=== PATIENT | female | born 2000 | race Caucasian/White ===

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

== ENCOUNTER → 2023-05-14 | Outpatient (CLI) | payer BC, OTHER ==
[2023-05-14 13:16] LABS: HEMATOCRIT 37.4 % (36.0-47.0); HEMOGLOBIN 12.3 g/dl (12.0-15.5); MEAN CORPUSCULAR HEMOGLOBIN 28.4 pg (27.0-33.0); MEAN CORPUSCULAR HGB CONC 32.9 g/dl (32.0-36.5); MEAN CORPUSCULAR VOLUME 86.4 fl (80.0-96.0); PLATELET COUNT, AUTOMATED 253 10^3/uL (150-450); RED BLOOD COUNT 4.33 10^6/uL (4.00-5.40); WHITE BLOOD COUNT 9.3 10^3/uL (4.0-10.0)
[2023-05-14 14:26] LABS: HIV 1&2 SCREEN NEGATIVE (NEGATIVE)
[2023-05-14 14:35] LABS: HEPATITIS C VIRUS ABY INDEX 0.08 INDEX (<0.8)
[2023-05-14 14:47] LABS: GC DNA AMPLIFICATION NEGATIVE (NEGATIVE)
== END ==
LOC: M PLALAB 11:24
PROVIDERS: ATTEND Specialist
DX: Z34.81 Encounter for supervision of other normal pregnancy, first trimester (principal)

== ENCOUNTER → 2023-06-04 | Outpatient (CLI) | payer BC, OTHER | LOC: M PLALAB 10:56 | PROVIDERS: ATTEND Specialist | DX: Z34.81 Encounter for supervision of other normal pregnancy, first trimester (principal) ==

== ENCOUNTER → 2023-06-15 | Outpatient (REF) | payer BC, OTHER | LOC: M PLALAB 15:42 | PROVIDERS: ATTEND Obstetrics & Gynecology | DX: R82.90 Unspecified abnormal findings in urine (principal) ==

== ENCOUNTER 2023-07-08 19:31 | Emergency (ER) | payer BC, OTHER ==
[~2023-07-08] VITALS: Ht 175.3 cm; Wt 80.9 kg
[2023-07-08 20:47] LABS: BASO % 0.3 % (0.0-1.0); EOS % 0.1 % (0.0-3.0); HEMATOCRIT 36.2 % (36.0-47.0); HEMOGLOBIN 12.3 g/dl (12.0-15.5); LYMPH # 1.1 10^3/uL (1.5-5.0); LYMPH % 9.7 % (24.0-44.0); MEAN CORPUSCULAR HEMOGLOBIN 29.2 pg (27.0-33.0); MONO # 0.3 10^3/uL (0.0-0.8); MONO % 3.1 % (2.0-8.0); NEUTROPHILS # 9.6 10^3/uL (1.5-8.5); NEUTROPHILS % 86.4 % (36.0-66.0); PLATELET COUNT, AUTOMATED 190 10^3/uL (150-450); RED BLOOD COUNT 4.21 10^6/uL (4.00-5.40); WHITE BLOOD COUNT 11.1 10^3/uL (4.0-10.0)
[2023-07-08] MEDS ORDERED: NS 1,000 ML IV ONE (20:55)
[2023-07-08 21:11] LABS: LIPASE 31 U/L (12-53)
[2023-07-08 21:14] LABS: ALBUMIN 3.3 G/DL (3.2-5.2); ALKALINE PHOSPHATASE 65 U/L (46-116); ALT/SGPT 9 U/L (7.0-40); AST/SGOT 11 U/L (<34); BILIRUBIN,DIRECT < 0.1 MG/DL (<0.4); BILIRUBIN,TOTAL 0.3 MG/DL (0.3-1.2); BLOOD UREA NITROGEN 7 MG/DL (9-23); CALCIUM LEVEL 8.7 MG/DL (8.5-10.1); CARBON DIOXIDE LEVEL 21 MMOL/L (20-31); CHLORIDE LEVEL 106 MMOL/L (98-107); CREATININE FOR GFR 0.51 MG/DL (0.55-1.30); GLOMERULAR FILTRATION RATE > 60.0 (>60); GLUCOSE, FASTING 122 MG/DL (60-100); POTASSIUM SERUM 3.8 MMOL/L (3.5-5.1); SODIUM LEVEL 138 MMOL/L (136-145); TOTAL PROTEIN 7.1 G/DL (5.7-8.2)
[2023-07-08] MEDS ORDERED: ONDANSETRON 4MG 2ML VIAL IV ONE (21:25)
[2023-07-08] MEDS ORDERED: ACETAMINOPHEN *IV* 1,000 MG in IV 1 EA IV ONE (21:25)
[2023-07-08 22:02] VITALS: BP 121/77; TEMP 98.7; O2SAT 99
[2023-07-08] MEDS ORDERED: ONDA4TAB6 PO (23:27)
== END 2023-07-08 23:43 | disposition home or self-care (01) ==
LOC: M ED 19:31
DX: O21.9 Vomiting of pregnancy, unspecified (principal); O26.892 Other specified pregnancy related conditions, second trimester; R51.9 Headache, unspecified; Z3A.17 17 weeks gestation of pregnancy; Z88.5 Allergy status to narcotic agent; Z79.83 Long term (current) use of bisphosphonates; Z79.899 Other long term (current) drug therapy
CPT/HCPCS: 80048; 80076; 83690; 85025; 96365; 96366; 96375; 99284; J0131; J2405

== ENCOUNTER → 2023-09-12 | Outpatient (CLI) | payer BC, OTHER ==
[2023-09-12 14:07] LABS: HEMATOCRIT 33.2 % (36.0-47.0); MEAN CORPUSCULAR HEMOGLOBIN 30.8 pg (27.0-33.0); MEAN CORPUSCULAR HGB CONC 33.1 g/dl (32.0-36.5); PLATELET COUNT, AUTOMATED 174 10^3/uL (150-450); RED BLOOD COUNT 3.57 10^6/uL (4.00-5.40); WHITE BLOOD COUNT 9.9 10^3/uL (4.0-10.0)
[2023-09-12 15:37] LABS: GC DNA AMPLIFICATION NEGATIVE (NEGATIVE)
== END ==
LOC: M PLALAB 09:52
PROVIDERS: ATTEND Advanced Practice Midwife
DX: Z34.92 Encounter for supervision of normal pregnancy, unspecified, second trimester (principal)

== ENCOUNTER 2023-09-15 22:24 | Outpatient (CLI) | payer BC ==
[2023-09-15 22:31] VITALS: BP 120/59
== END 2023-09-15 23:14 | disposition home or self-care (01) ==
LOC: M LDO 22:24
PROVIDERS: ATTEND Specialist
DX: O36.8120 Decreased fetal movements, second trimester, not applicable or unspecified (principal); O44.42 Low lying placenta NOS or without hemorrhage, second trimester; O36.0120 Maternal care for anti-D [Rh] antibodies, second trimester, not applicable or unspecified; Z3A.37 37 weeks gestation of pregnancy; Z88.5 Allergy status to narcotic agent
CPT/HCPCS: 59025; 76815; G0463

== ENCOUNTER → 2023-10-22 | Outpatient (CLI) | payer BC, OTHER | LOC: M WHC 09:32 | PROVIDERS: ATTEND Obstetrics & Gynecology | DX: Z36.2 Encounter for other antenatal screening follow-up (principal); Z3A.32 32 weeks gestation of pregnancy ==

== ENCOUNTER → 2023-11-23 | Outpatient (REF) | payer BC, OTHER | LOC: M PLALAB 14:08 | PROVIDERS: ATTEND Obstetrics & Gynecology | DX: Z34.83 Encounter for supervision of other normal pregnancy, third trimester (principal) ==

== ENCOUNTER 2024-01-13 18:50 | Emergency (ER) | payer BC, OTHER ==
[~2024-01-13] VITALS: Ht 175.3 cm; Wt 88.0 kg
[~2024-01-13 18:50] MED LIST changes: +ACET-683 PO; +IBUP80TA PO
[2024-01-13 20:04] LABS: BASO # 0.1 10^3/uL (0.0-0.2); BASO % 0.6 % (0.0-1.0); EOS # 0.1 10^3/uL (0.0-0.5); EOS % 1.4 % (0.0-3.0); HEMATOCRIT 37.5 % (36.0-47.0); LYMPH # 2.3 10^3/uL (1.5-5.0); LYMPH % 26.8 % (24.0-44.0); MEAN CORPUSCULAR HEMOGLOBIN 27.5 pg (27.0-33.0); MEAN CORPUSCULAR VOLUME 85.8 fl (80.0-96.0); MONO # 0.5 10^3/uL (0.0-0.8); NEUTROPHILS # 5.6 10^3/uL (1.5-8.5); PLATELET COUNT, AUTOMATED 254 10^3/uL (150-450); RED BLOOD COUNT 4.37 10^6/uL (4.00-5.40); WHITE BLOOD COUNT 8.6 10^3/uL (4.0-10.0)
[2024-01-13 20:32] LABS: LIPASE 39 U/L (12-53)
[2024-01-13 20:34] LABS: ALBUMIN 3.8 G/DL (3.2-5.2); ALKALINE PHOSPHATASE 105 U/L (46-116); ALT/SGPT 18 U/L (7.0-40); AST/SGOT 23 U/L (<34); BILIRUBIN,DIRECT < 0.1 MG/DL (<0.4); BILIRUBIN,TOTAL < 0.2 MG/DL (0.3-1.2); BLOOD UREA NITROGEN 19 MG/DL (9-23); CALCIUM LEVEL 8.6 MG/DL (8.5-10.1); CARBON DIOXIDE LEVEL 28 MMOL/L (20-31); CHLORIDE LEVEL 109 MMOL/L (98-107); CREATININE FOR GFR 0.85 MG/DL (0.55-1.30); GLOMERULAR FILTRATION RATE > 60.0 (>60); GLUCOSE, FASTING 91 MG/DL (60-100); POTASSIUM SERUM 4.6 MMOL/L (3.5-5.1); SODIUM LEVEL 141 MMOL/L (136-145)
[2024-01-13 20:37] LABS: HCG, SERUM QUALITATIVE NEGATIVE (NEGATIVE)
[2024-01-13 21:30] LABS: RSV AMPLIFICATION NEGATIVE (NEGATIVE)
[2024-01-13 21:56] VITALS: BP 117/62; TEMP 97.9; O2SAT 98
== END 2024-01-13 22:02 | disposition home or self-care (01) ==
LOC: M ED 18:50
DX: R19.7 Diarrhea, unspecified (principal); R19.5 Other fecal abnormalities; R10.9 Unspecified abdominal pain; Z88.8 Allergy status to other drugs, medicaments and biological substances; Z79.810 Long term (current) use of selective estrogen receptor modulators (SERMs)

== ENCOUNTER 2024-03-09 19:07 | Emergency (ER) | payer BC, OTHER ==
[~2024-03-09] VITALS: Ht 175.3 cm; Wt 97.8 kg
[2024-03-09] MEDS ORDERED: ACET-683 PO (19:21)
[2024-03-09 20:23] LABS: BASO % 0.1 % (0.0-1.0); EOS % 0.1 % (0.0-3.0); HEMATOCRIT 33.1 % (36.0-47.0); HEMOGLOBIN 11.2 g/dl (12.0-15.5); LYMPH # 0.6 10^3/uL (1.5-5.0); LYMPH % 6.1 % (24.0-44.0); MEAN CORPUSCULAR HEMOGLOBIN 28.7 pg (27.0-33.0); MEAN CORPUSCULAR HGB CONC 33.8 g/dl (32.0-36.5); MEAN CORPUSCULAR VOLUME 84.9 fl (80.0-96.0); MONO # 0.6 10^3/uL (0.0-0.8); MONO % 6.8 % (2.0-8.0); NEUTROPHILS # 7.9 10^3/uL (1.5-8.5); NEUTROPHILS % 86.7 % (36.0-66.0); PLATELET COUNT, AUTOMATED 213 10^3/uL (150-450); WHITE BLOOD COUNT 9.1 10^3/uL (4.0-10.0)
[2024-03-09] MEDS: IBUPROFEN 600MG TAB PO ONE (20:36)
[2024-03-09 20:58] LABS: BLOOD UREA NITROGEN 11 MG/DL (9-23); CALCIUM LEVEL 8.4 MG/DL (8.5-10.1); CARBON DIOXIDE LEVEL 24 MMOL/L (20-31); CHLORIDE LEVEL 106 MMOL/L (98-107); CREATININE FOR GFR 0.78 MG/DL (0.55-1.30); GLOMERULAR FILTRATION RATE > 60.0 (>60); GLUCOSE, FASTING 109 MG/DL (60-100); POTASSIUM SERUM 3.5 MMOL/L (3.5-5.1); SODIUM LEVEL 141 MMOL/L (136-145)
[2024-03-09] MEDS ORDERED: CEPH500C PO (21:07)
[2024-03-09] MEDS: CEPHALEXIN 500 MG CAP PO ONE (21:28)
[2024-03-09 21:34] VITALS: BP 109/57; TEMP 100; O2SAT 99
== END 2024-03-09 21:35 | disposition home or self-care (01) ==
LOC: M ED 19:07
DX: N61.0 Mastitis without abscess (principal); Z88.8 Allergy status to other drugs, medicaments and biological substances; Z79.1 Long term (current) use of non-steroidal anti-inflammatories (NSAID); Z79.810 Long term (current) use of selective estrogen receptor modulators (SERMs); Z79.2 Long term (current) use of antibiotics

== ENCOUNTER → 2024-04-07 | Outpatient (CLI) | payer BC, OTHER ==
[~2024-04-07] MED LIST changes: +CEPH500C PO
== END ==
LOC: M WHC 13:45
PROVIDERS: ATTEND Nurse Practitioner Family
DX: N63.21 Unspecified lump in the left breast, upper outer quadrant (principal); N64.4 Mastodynia

== ENCOUNTER → 2024-09-09 | Outpatient (REF) | payer BC, OTHER ==
[~2024-09-09] MED LIST changes: +ONDA-282 PO; -ONDA4TAB6 PO
== END ==
LOC: M SFHCWAGY 18:04
PROVIDERS: ATTEND Nurse Practitioner Family
DX: Z12.4 Encounter for screening for malignant neoplasm of cervix (principal); R87.613 High grade squamous intraepithelial lesion on cytologic smear of cervix (HGSIL)

== ENCOUNTER 2025-07-09 19:21 | Emergency (ER) | payer BC, OTHER ==
[~2025-07-09] VITALS: Ht 177.8 cm; Wt 91.2 kg
[2025-07-09] MEDS ORDERED: POLY510P14 (19:25)
[2025-07-09 20:12] LABS: BASO # 0.1 10^3/uL (0.0-0.2); BASO % 0.6 % (0.0-1.0); EOS # 0.1 10^3/uL (0.0-0.5); EOS % 0.6 % (0.0-3.0); LYMPH # 2.3 10^3/uL (1.5-5.0); LYMPH % 24.2 % (24.0-44.0); MONO # 0.6 10^3/uL (0.0-0.8); MONO % 6.4 % (2.0-8.0); NEUTROPHILS # 6.3 10^3/uL (1.5-8.5); NEUTROPHILS % 67.9 % (36.0-66.0); PLATELET COUNT, AUTOMATED 272 10^3/uL (150-450)
[2025-07-09 20:13] LABS: KETONE, URINE AUTO RFX NEGATIVE (NEGATIVE); LEUKOCYTE ESTERASE UR AUTO RFX NEGATIVE (NEGATIVE); NITRITE, URINE AUTO RFX NEGATIVE (NEGATIVE); RBC, URINE AUTO RFX 1 /HPF (0-3); SQUAM EPITHELIAL CELL UR AURFX 1 /HPF (0-6); WBC, URINE AUTO RFX 1 /HPF (0-3)
[2025-07-09 20:37] LABS: ALT/SGPT 15 U/L (7.0-40); AST/SGOT 19 U/L (<34)
[2025-07-09 20:40] LABS: HCG, SERUM QUALITATIVE NEGATIVE (NEGATIVE)
[2025-07-09] MEDS ORDERED: ISOVUE-370 76% 100 ML VIAL As Ordered ONE (21:21)
[2025-07-09] MEDS: KETOROLAC 30 MG/ML 1 ML VIAL IV ONE (21:37)
[2025-07-09 22:18] VITALS: BP 117/66; TEMP 97.4; O2SAT 100
[2025-07-09] MEDS: MAGNESIUM CITRATE 300 ML BTL PO ONE (22:39)
== END 2025-07-09 22:45 | disposition home or self-care (01) ==
LOC: M ED 19:21
DX: K59.00 Constipation, unspecified (principal); Z88.5 Allergy status to narcotic agent; Z79.810 Long term (current) use of selective estrogen receptor modulators (SERMs)
CPT/HCPCS: 36415; 74177; 80047; 80076; 81001; 83690; 84703; 85025; 96374; 99284; J1885; Q9967